=== PATIENT | male | born 1965 | race Caucasian/White ===

== ENCOUNTER 2022-04-14 19:25 | Emergency (ER) | payer OTHER ==
[2022-04-14 20:39] LABS: #Eosinphils 0.4 thou/uL (0.0-0.7); #Lymphocytes 1.6 thou/uL (1.20-3.40); #Monocytes 0.6 thou/uL (0.11-0.59); #Neutrophils 5.3 thou/uL (1.40-6.50); %Basophils 0.5 % (0.0-1.0); %Eosinophils 4.6 % (0.0-10.0); %Lymphocytes 20.2 % (21.0-51.0); %Monocytes 7.5 % (0.0-10.0); %Neutrophils 67.2 % (42.0-75.0); Hemoglobin 17.4 g/dL (14.0-18.0); Mean Corpuscular Hemoglobin 30.4 pg (27.0-31.0); Mean Corpuscular Volume 89.3 fL (78.0-98.0); Mean Platelet Volume 10.2 fL (7.4-10.4); Platelet Count 182 thou/uL (130-400); RBC Distribution Width 10.9 % (11.5-14.5); Red Blood Cell (RBC) Count 5.72 mill/uL (4.70-6.10); White Blood Cell (WBC) Count 7.9 thou/uL (4.8-10.8)
[2022-04-14 20:50] LABS: INR-International Normal Ratio 1.2; Prothrombin Time 15.6 sec (12.0-14.7)
[2022-04-14 20:59] LABS: ALT (SGPT) 23 U/L (8-55); AST (SGOT) 17 U/L (5-34); Alkaline Phosphatase 126 U/L (40-110); Anion Gap 18 mmol/L (10-20); BUN (Urea Nitrogen) 17 mg/dL (8.4-25.7); Bilirubin, Total 0.4 mg/dL (0.2-1.2); Calc. Creatinine Clearance 0 mL/min (70-130); Calcium 9.6 mg/dL (7.8-10.44); Carbon Dioxide 27 mmol/L (22-29); Chloride 103 mmol/L (98-107); Globulin 3.2 g/dL (2.4-3.5); Glucose 157 mg/dL (70-105); Potassium 3.9 mmol/L (3.5-5.1); Protein, Total 7.2 g/dL (6.0-8.3); Sodium 144 mmol/L (136-145)
[2022-04-14] MEDS ORDERED: Lidocaine 1% w/Epinephrine 1:100K 20 ML VIAL ONE (22:47)
[2022-04-15 02:01] LABS: RBC Count-Automated (BF) 7431 /cu.mm; WBC/Nucleated-Auto (BF) 898 /cu.mm
[2022-04-15 02:04] LABS: BF Color Yellow; Body Fluid Source Synovial Fluid; Clarity Hazy (Clear); Tube # 1
[2022-04-15 02:27] LABS: BF Segmented Neutrophils 40 %; Cell Count Non Hematic 57 %; Lymphocytes 3 %
== END 2022-04-14 23:30 | disposition home or self-care (01) ==
LOC: MADERS 19:25
DX: M25.461 Effusion, right knee (principal); Z86.73 Personal history of transient ischemic attack (TIA), and cerebral infarction without residual deficits; I10 Essential (primary) hypertension; F17.210 Nicotine dependence, cigarettes, uncomplicated; Z79.899 Other long term (current) drug therapy; Z79.01 Long term (current) use of anticoagulants
CPT/HCPCS: 20611; 36415; 80053; 85025; 85060; 85610; 86140; 87070; 87205; 89051; 89060

== ENCOUNTER 2022-11-27 14:26 | Outpatient (CLI) | payer OTHER | END 2022-11-27 14:27 | disposition home or self-care (01) | LOC: MADLAB 14:26 | PROVIDERS: ATTEND Internal Medicine | DX: J01.90 Acute sinusitis, unspecified (principal) | CPT/HCPCS: 70220 ==

== ENCOUNTER 2023-01-14 13:05 | Emergency (ER) | payer OTHER ==
[2023-01-14] MEDS ORDERED: Ketorolac Tromethamine 60 MG/2 ML VIAL ONE (14:07)
== END 2023-01-14 15:08 | disposition home or self-care (01) ==
LOC: MADERS 13:05
DX: M79.641 Pain in right hand (principal); E11.9 Type 2 diabetes mellitus without complications; K21.9 Gastro-esophageal reflux disease without esophagitis; I10 Essential (primary) hypertension; F17.210 Nicotine dependence, cigarettes, uncomplicated; Y93.02 Activity, running; Y92.89 Other specified places as the place of occurrence of the external cause; Z79.84 Long term (current) use of oral hypoglycemic drugs
CPT/HCPCS: 96372; J1885

== ENCOUNTER 2023-02-14 10:21 | Outpatient (CLI) | payer OTHER | END 2023-02-14 10:22 | disposition home or self-care (01) | LOC: MADRAD 10:21 | PROVIDERS: ATTEND Neurological Surgery | DX: M47.26 Other spondylosis with radiculopathy, lumbar region (principal); Z98.890 Other specified postprocedural states | CPT/HCPCS: 72100 ==

== ENCOUNTER 2023-03-05 10:21 | Outpatient (CLI) | payer OTHER | END 2023-03-05 10:22 | disposition home or self-care (01) | LOC: MADRAD 10:21 | PROVIDERS: ATTEND Internal Medicine | DX: J32.9 Chronic sinusitis, unspecified (principal) | CPT/HCPCS: 70220 ==

== ENCOUNTER 2023-07-04 13:22 | Emergency (ER) | payer OTHER ==
[2023-07-04] MEDS ORDERED: methylPREDNISolone Sod Succ/PF 125 MG/2 ML VIAL ONE (14:19)
[2023-07-04] MEDS ORDERED: Orphenadrine Citrate 60 MG/2 ML VIAL ONE (14:19)
== END 2023-07-04 14:41 | disposition home or self-care (01) ==
LOC: MADERS 13:22
DX: G89.29 Other chronic pain (principal); M54.42 Lumbago with sciatica, left side; E11.9 Type 2 diabetes mellitus without complications; K21.9 Gastro-esophageal reflux disease without esophagitis; I10 Essential (primary) hypertension; F17.210 Nicotine dependence, cigarettes, uncomplicated; Z79.899 Other long term (current) drug therapy
CPT/HCPCS: 96372; 99283; J2360; J2930

== ENCOUNTER 2023-11-23 10:31 | Emergency (ER) | payer OTHER ==
[2023-11-23] MEDS ORDERED: Oxymetazoline HCl 0.05% (30 ML BOT) ONE (10:55)
== END 2023-11-23 11:45 | disposition home or self-care (01) ==
LOC: MADERS 10:31
DX: R04.0 Epistaxis (principal); K21.9 Gastro-esophageal reflux disease without esophagitis; E11.9 Type 2 diabetes mellitus without complications; E78.5 Hyperlipidemia, unspecified; I10 Essential (primary) hypertension; F17.210 Nicotine dependence, cigarettes, uncomplicated; Z79.899 Other long term (current) drug therapy; Z79.01 Long term (current) use of anticoagulants; Z86.73 Personal history of transient ischemic attack (TIA), and cerebral infarction without residual deficits
CPT/HCPCS: 99283